=== PATIENT | male | born 1965 | race Caucasian/White ===

== ENCOUNTER → 2018-01-26 | Day surgery (SDC) | payer BC ==
[2018-01-25 14:40] LABS: BASOPHILS # (AUTO) 0.1 (0.0-0.1); BASOPHILS % 0.6 % (0.0-1.0); EOSINOPHILS # (AUTO) 0.2 (0.0-0.4); EOSINOPHILS % 1.9 % (0.0-6.0); HEMATOCRIT 49.6 % (38.2-49.6); HEMOGLOBIN 17.3 g/dL (14.0-18.0); LYMPHOCYTES # (AUTO) 2.2 (1.0-3.2); MEAN CORPUSCULAR HEMOGLOBIN 30.8 pg (28-32); MEAN CORPUSCULAR HGB CONC 34.9 g/dL (31-35); MEAN CORPUSCULAR VOLUME 88.3 fL (81-99); MONOCYTES % 9.5 % (4.4-11.3); NEUTROPHILS # (AUTO) 6.8 (2.1-6.9); NEUTROPHILS % 66.7 % (38.7-80.0); PLATELET COUNT 232 x10e3/uL (140-360); RED BLOOD COUNT 5.62 x10e6/uL (4.3-5.7); RED CELL DISTRIBUTION WIDTH 12.1 % (11.7-14.4)
[2018-01-25 15:35] LABS: ALANINE AMINOTRANSFERASE 37 IU/L (0-55); ALBUMIN 4.2 g/dL (3.5-5.0); ALBUMIN/GLOBULIN RATIO 1.4 (0.8-2.0); ALKALINE PHOSPHATASE 52 IU/L (40-150); ANION GAP 16.1 mmol/L (8-16); BLOOD UREA NITROGEN 16 mg/dL (7-26); BUN/CREATININE RATIO 16 (6-25); CALCIUM 9.9 mg/dL (8.4-10.2); CARBON DIOXIDE 27 mmol/L (22-29); CHLORIDE 100 mmol/L (98-107); CREATININE, SERUM 0.99 mg/dL (0.72-1.25); EST GLOMERULAR FILTRATION RATE > 60 ML/MIN (60-); GLUCOSE 97 mg/dL (74-118); POTASSIUM 4.1 mmol/L (3.5-5.1); SODIUM 139 mmol/L (136-145)
[~2018-01-26] VITALS: Ht 172.7 cm; Wt 108.0 kg
[~2018-01-26] MED LIST: ALLEGRA ALLERGY60 MG; ALPRAZOLAM 0.5 MG TAB ONE; AMLODIPINE BESY10 MG PO; ASPIRIN81 MG PO; DIOVAN HCT 3201 EACH PO; DIPHENHYDRAMINE HCL 25 MG CAP ONE; DYMISTA NASAL S23 GM; FENTANYL CITRATE/PF 100MCG/2 ML INJ ONE; FISH OIL 1,2001 EAC1 PEG; GLUCOSAMINE1000 MG; HEPARIN SOD (PORCINE) 1000 UNIT/ML 30ML ONE; HEPARIN SOD/SOD CHLORIDE 2,000 ML ONE; IOPAMIDOL 370 MG/ML 200 ML INFUS..BTL INJ ONE; LIDOCAINE HCL 2% LOCAL 20 ML VIAL ONE; LOVASTATIN20 MG PEG; MIDAZOLAM HCL 2 MG/2 ML VIAL ONE; SODIUM CHLORIDE 0.9% 1000ML 1,000 ML ONE; VERAPAMIL HCL 2.5 MG/ML 2 ML VIAL ONE; VITAMIN C1000 MG PO; ZETIA10 MG PO; [UNRECOGNIZED DRUG - OTHER] PO
[2018-01-26 14:45] VITALS: BP 128/93
--- NOTE | 2018-01-26 14:48 | Operative Report ---
DATE OF PROCEDURE: January 26, 2018 INDICATIONS: Coronary artery disease and abnormal stress test with inferior ischemia. PROCEDURES PERFORMED 1. Left heart catheterization. 2. Selective coronary angiography. 3. Left ventriculography. 4. Deployment right wrist transradial band. COMPLICATIONS: None. RECOMMENDATIONS: Aggressive medical therapy. Access was obtained in the right radial artery. A 5-Kinyarwanda sheath was placed. Diagnostic coronary angiogram revealed patent left main. Circumflex was a dominant vessel. Midcircumflex 50% stenosis. Distal left posterior descending artery was 1.5-mm vessel with 90% stenosis. Diffuse disease in the left anterior descending artery and diagonal arteries of 20% to 30% luminal stenosis. Right coronary artery was nondominant. LV ejection fraction 65%. LV end-diastolic pressure of 8. No gradient across the aortic valve on pullback. Right wrist sheath was removed. TR band applied. Patient discharged home same day. Job#: [id number] [facility]
[2018-01-26 15:00] VITALS: BP 128/93
[2018-01-26 15:10] VITALS: BP 112/78
[2018-01-26 15:20] VITALS: BP 114/72
[2018-01-26 15:35] VITALS: BP 110/74
[2018-01-26 16:00] VITALS: BP 108/75
== END | disposition home or self-care (01) ==
LOC: CATH LAB 09:36
PROVIDERS: ATTEND Internal Medicine Interventional Cardiology
DX: I25.118 Atherosclerotic heart disease of native coronary artery with other forms of angina pectoris (principal); R94.39 Abnormal result of other cardiovascular function study; I10 Essential (primary) hypertension; E11.9 Type 2 diabetes mellitus without complications; Z79.84 Long term (current) use of oral hypoglycemic drugs; E78.01 Familial hypercholesterolemia; G47.33 Obstructive sleep apnea (adult) (pediatric); Z01.812 Encounter for preprocedural laboratory examination; Z79.82 Long term (current) use of aspirin
CPT/HCPCS: 36415; 80053; 85025; 93458; C1887; J1644; J2001; J2250; J7030; Q9967